=== PATIENT | male | born 2000 | race Caucasian/White ===

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

== ENCOUNTER 2023-02-28 09:53 | Emergency (ER) | payer OTHER, SELFPAY ==
[2023-02-28 10:05] VITALS: BP 104/52; PULSE 79; RESP 18; TEMP 37.4; O2SAT 99; BMI 27.3
--- NOTE | 2023-02-28 10:10 | XR_ITS ---
FINAL REPORT CLINICAL HISTORY: Lower back pain, tree fell on back 1 month ago FINDINGS: LUMBAR SPINE Three views demonstrate no acute fracture. The disc spaces are well preserved. There is no malalignment. IMPRESSION: No acute process. Reviewed, Interpreted and Dictated by Niko Ellison MD Transcribed by Gaby Gomez Authenticated and [facility]
--- NOTE | 2023-02-28 11:02 | EXP.UTC ---
Discharge Plan Disposition Patient Disposition: Home, Self-Care Condition: Good Prescriptions Prescriptions: New methocarbamol 500 mg tablet 500 mg PO TID PRN (Reason: muscle spasm) Qty: 15 0RF Referrals Follow up/Referrals: Eric Mckenzie MD [Primary Care Provider] - See instructions Activity Restrictions/Add. Instructions Additional Instructions/Restrictions: *Ibuprofen farnaz 6 hours with meal as needed for pain/inflammation *Not additional anti-inflammatory like motrin, aleve, advil with the above amount of ibuprofen. You can still take Tylenol every 4 hours as needed if you need something else for pain * moist heat every 20 minutes 3-4 times a day to affected area *Muscle relaxer every 8 hours as needed for muscle spasms but remember, it WILL cause drowsiness You cannot take it and drive, operate machinery or care for small children. *Keep this area active, no movement leads to more stiffness, However take it easy and avoid heavy lifting pushing or pulling *Follow up with you family doctor if no improvement for further treatment Clinical Impressions Clinical Impression: Low back pain Stand Alone Forms Stand Alone Forms: Work/School Release Instructions Patient Instructions: DI for Muscle Spasm, Methocarbamol Discharge ED Provider: Nayana Waggoner [facility] General Stated complaint: Back pain AO@home 02/08 Mode of Arrival: Ambulatory Source of Information: Patient and Parent(s) Limitations: No Limitations Time Seen by Provider: 02/28/23 11:02 Description of Symptoms (Recalled from Triage Doc. by RN): c/o lower left back pain, a few weeks ago and tree branch fell on it, the pain and swelling comes and goes since the injury, states when he rest at night it seems better t/o the day and as the day goes on it get worse. STates he does alot of heavy lifting at work, History of Present Illness Provider Complaint: Patient states that he was cutting a tree branch about a month or so ago when one the branches fell and hit him in the right side of his lower back States that he had a knot and some bruising there after it happened but it got better States that he does alot of heavy lifting and pulling at work and has been having pain in his right lower back on and off since States that when he sits and rest it gets better but when he is up moving during the day he has spasms so today he came in to get it checked Related Data Previous Rx's Medication Instructions Recorded methocarbamol 500 mg tablet 500 mg PO TID PRN muscle spasm #15 02/28/23 tabs Allergies Allergy/AdvReac Type Severity Reaction Status Date / Time NO KNOWN ALLERGIES Allergy Uncoded 10/15/17 15:12 [facility] Disclaimer: The information contained in this section may have been updated after the patient was seen, as this information can be updated by other users. Social History Smoking Status: Unknown if ever smoked alcohol intake: never current occupational status: employed Travel in the last 8 weeks: None ROS Obtained: Yes All systems reviewed & no additional complaints except as documented and Yes Systems reviewed as appropriate & no additional complaints except as documented ENT Ears, Nose, Mouth, and Throat: Reports system reviewed and no additional complaints, except as documented and Reports as per HPI Cardiovascular Cardiovascular: Reports system reviewed and no additional complaints, except as documented and Reports as per HPI Respiratory Respiratory: Reports system reviewed and no additional complaints, except as documented and Reports as per HPI Gastrointestinal Gastrointestingal: Reports system reviewed and no additional complaints, except as documented and as per HPI Genitourinary Male Genitourinary: Reports system reviewed and no additional complaints, except as documented, Reports as per HPI, Denies difficulty urinating and Denies hematuria Musculoskeletal Musculoskeletal: Reports system reviewed and no additional comp
[2023-02-28 11:57] VITALS: BP 104/52; PULSE 79; RESP 18; TEMP 37.4
== END 2023-02-28 11:58 | disposition home or self-care (01) ==
PROVIDERS: Emergency Provider Nurse Practitioner; PCP Internal Medicine Adolescent Medicine
DX: M54.50 Low back pain, unspecified (principal); W20.8XXA Other cause of strike by thrown, projected or falling object, initial encounter
CPT/HCPCS: 72100; 99204; 99212; G0463

== ENCOUNTER 2025-06-20 17:43 | Emergency (ER) | payer OTHER, SELFPAY ==
[2025-06-20] VITALS (7 sets, daily range): BP systolic 112–120; BP diastolic 63–75; PULSE 85–98; RESP 18; TEMP 37.1; O2SAT 98; BMI 29.0
--- OUTSIDE RECORDS SUMMARY | 2025-06-20 18:12 | XMS_ITS | Referral Summary ---
Author Organization [employer] ([place], [place], [place], [place]) Address [address] [place] [address] Care Team Providers Care Roving Marker Name Role Phone Eric Mckenzie MD Primary Care Provider [phone] Allergies No known active allergies Medications cephalexin (KEFLEX) 500 MG capsule Take 1 capsule (500 mg total) by mouth in the morning and 1 capsule (500 mg total) at noon and 1 capsule (500 mg total) in the evening. 21 capsule 03/19/2023 Active Immunizations Name Administration Dates Next Due Tdap 03/19/2023 Social History Tobacco Use Types Packs/Day Years Used Date Smoking Tobacco: Never Smokeless Tobacco: Never Tobacco Cessation:Counseling Given: Not Answered Alcohol Use Standard Drinks/Week Comments Never 0 (1 standard drink = 0.6 oz pur e alcohol) Food Insecurity Answer Date Recorded Food run out past 12 months Not on file 10/29 Food did not last past 12 months Not on file 11/16/2023 Employment Answer Date Recorded Help finding and keeping a job Not on file 0 11/16/2023 Family and Community Support Answer Joe e Recorded Help with Day to Day Activities Not on file 11/16/2023 Feeling Lonely or Isolated Not on file 11/16 Educational Attainment Answer Date Bello rded Speak language other than Uzbek at home Not on file 11/16/2023 Want help with school or training Not on file 11/16/2023 Substance Use Answer Date Recorded Used prescription meds for non-medical reasons N ot on file 11/16/2023 Used illegal drugs past 12 months Not on file 11/16/2023 Sex and Gender Information Value Date Recorded Sex Assigned at Not on file Legal Sex Male 1:05 PM CDT Gender Identity Not on file Sexual Orientation Not on file Last Filed Vital Signs Vital Sign Reading Time Taken Comments Blood Pressure 118/67 03/19/2023 3:00 PM EDT Pulse 78 03/19/2023 3:00 PM EDT Temperature 37.1 C (98.8 F) 03/19/2023 2:15 PM EDT Respiratory Rate 18 03/19/2023 3:00 PM EDT Oxygen Saturation 100% 03/19/2023 3:00 PM EDT Inhaled Oxygen Concentration - - Weight 81.6 kg (180 lb) 03/19/2023 2:15 PM EDT Height 172.7 cm (5' 8 ) 03/19/2023 2:15 PM EDT Body Mass Index 27.37 03/19/2023 2:15 PM EDT Plan of Treatment Not on file Insurance Care Teams Roving Marker Relationship Specialty Start Date End Date Eric Mckenzie MD [address] [facility] [address] [place] [id number] PCP - General Adolescent Medicine 03/19/23
--- OUTSIDE RECORDS SUMMARY | 2025-06-20 18:12 | XMS_ITS | Clinical Summary ---
Author Organization [employer] ([place], [place], [place], [place]) Address [address] [place] [address] Care Team Providers Care Auto Servicer Name Role Phone Eric Mckenzie MD Primary Care Provider [phone] Allergies No known active allergies Medications cephalexin [...] Date Bello rded Speak language other than Hungarian at home Not on file 11/16/2023 Want [...] 03/19/2023 2:15 PM EDT Plan of Treatment Health Maintenance Due Date Last Done Comments Depression Screening (12+) 2013 HIV Screening 2016 Meningococcal B Vaccine (1 of 2 - Standard) 2017 Hepatitis C Screening 2019 Tobacco Cessation Counseling and Screening (12+) 03/19/2024 03/19/2023 COVID-19 VACCINE (1 - 2023- season) 2024 Influenza Vaccine (#1) 2025 DTAP/TDAP/TD VACCINES (8 - Td or Tdap) 03/19/2033 03/19/2023, 03/31/2014, 09/07/2005, Additional history exists Pneumococcal Vaccine: 0-49 Years Aged Out 09/08/2002, 03/27/2002, 01/22/2002, Additional history exists No longer eligible based on patient's age to complete this topic Insurance [facility] Care Teams Auto Servicer Relationship Specialty Start Date End Date Eric Mckenzie MD [address] [place] [address] [place] [id number] PCP - General Adolescent Medicine 03/19/23
--- NOTE | 2025-06-20 18:51 | XR_ITS ---
PROCEDURE INFORMATION: Exam: XR Right Knee Exam date and time: 06/20/2025 7:12 PM Age: 24 years old Clinical indication: Pain; Knee; Right; Additional info: Knee injury TECHNIQUE: Imaging protocol: Radiologic exam of the right knee. Views: 3 views. COMPARISON: No relevant prior studies available. FINDINGS: Bones/joints: No displaced fracture. Apparent small lucent lesion within distal femur, nonspecific. No dislocation. Moderate joint effusion. Soft tissues: Unremarkable. IMPRESSION: No displaced fracture. Joint effusion. Suggest CT to evaluate for occult fracture.
--- NOTE | 2025-06-20 18:53 | ED_ITS ---
Discharge Plan Disposition Patient Disposition: Home, Self-Care Prescriptions Prescriptions: No Action methocarbamol 500 mg tablet 500 mg PO TID PRN (Reason: muscle spasm) Qty: 15 0RF Referrals Follow up/Referrals: Leon Means DO [Staff Physician, Orthopedics] - See instructions Eric Mckenzie MD [Primary Care Provider, Internal Medicine] - See instructions Activity Restrictions/Add. Instructions Additional Instructions/Restrictions: No evidence of any fracture or dislocation but as discussed you have laxity in your knee and a joint effusion suggestive of internal derangement concerning for possible ligamental injury etc. Please follow-up with Dr. Means to arrange an outpatient MRI and further management. You may bear weight as tolerated and you may wear your Shabbir wrap and use crutches as needed for comfort. Clinical Impressions Clinical Impression: Effusion of right knee joint, Injury of knee, right Print Language Print Language: Kiswahili Discharge ED Provider: Molly Dawkins General Adult HPI General Chief complaint: PAIN Stated complaint: A/O 8- 1500 twisted rt leg cutting wood Time Seen by Provider: 06/20/25 18:11 Mode of Arrival: Ambulatory Source of Information: Patient Description of Symptoms (Recalled from ER Triage Doc. by RN): PT REPORTS RIGHT KNEE PAIN. PT WAS KNELT DOWN CUTTING WOOD, TWISTED AND WAS UNABLE TO STAND. History of Present Illness HPI narrative: Patient is a 24-year-old male presenting with right knee pain. Was cutting wood and accidentally a te-moak bed and sustaining a significant injury to the right knee with significant pain and swelling and difficulty with ambulation weightbearing. Related Data Previous Rx's ?Medication ?Instructions ?Recorded methocarbamol 500 mg tablet 500 mg PO TID PRN muscle s pasm #15 02/28/23 tabs Allergies Allergy/AdvReac Type Severity Reaction Status Date / Time NO KNOWN ALLERGIES Allergy Uncoded 10/15/17 15:12 [facility] Disclaimer: The information contained in this section may have been updated after the patient was seen, as this information can be updated by other users. Social History (Updated 02/28/23 @ 11:54 by Nayana Waggoner APRN) Smoking Status: Never smoker alcohol intake: never current occupational status: employed Travel in the last 8 weeks?: None Have you lived/traveled outside US in past 30 days?: No Contact w/someone who lives/traveled outside US past 30 days?: No Exposure to someone with infectious disease in past 14 days?: No Do you have a fever (greater than 100.4 F or 38 C)?: No Have you tested positive for COVID-19?: No Exposed to someone with COVID-19 in past 14 days?: No Do you have a sore throat?: No Do you have a cough?: No Do you have any weakness?: No Do you have any diarrhea?: No Are you experiencing any unusual bleeding?: No Do you have any muscle aches/pain?: No Do you have any abdominal pain?: No Are you experiencing loss of taste or smell?: No ROS Obtained: Yes All systems reviewed & no additional complaints except as documented Physical Exam General General appearance: alert and in no apparent distress Respiratory Respiratory exam: Present normal lung sounds bilaterally Cardiovascular Cardiovascular exam: Present regular rate and normal rhythm Extremities Exam Extremities exam: Present other (Right knee joint effusion there does appear to be significant laxity with anterior drawer test concerning for ACL injury otherwise stable) Neurological Exam Neurological exam: Present alert and oriented X3 Medical Decision Making Medical Records Screening: Per USPSTF and CDC recommendations, given the prevalence of disease in our region, it is our hospital?s policy to screen for HIV and viral Hepatitis for all patients aged 18 and over and those with ongoing risk factors. Vamshi Inquiry Pt receiving controlled substance: No Vital Signs: 06/20/25 18:00 06/20/25 18:01 06/20/25 18:15 Temperature 98.8 F Temperature Source Oral Pulse Rate 98 H Pulse Rate [Radial] 88 Respiratory Rate 18 Blood Pressure 114/75 112/63 Blood Pressure [Right Arm] 114/75 Blood Pressure Mean 89 79 Blood Pressure Mean [Right Arm] 88 Blood Pressure Source [Right Arm] Automatic Cuff Blood Pressure Position [Right Arm] Sitting 02 Sat by Pulse Oximetry 98 Oxygen Delivery Method Room Air 06/20/25 18:30 06/20/25 18:45 06/20/25 19:00 Temperature Temperature Source Pulse Rate 92 H 85 Pulse Rate [Radial] Respiratory Rate Blood Pressure 115/68 120/75 114/71 Blood Pressure [Right Arm] Blood Pressure Mean 84 91 83 Blood Pressure Mean [Right Arm] Blood Pressure Source [Right Arm] Blood Pressure Position [Right Arm] 02 Sat by Pulse Oximetry Oxygen Delivery Method Orders (Tests/Meds): ORDERS Category Date Time Status Knee XR right 3 views [XR knee RT 3V] Stat Exams 06/20/25 18:51 Taken Medical Decision Narrative: 24-year-old male with significant right knee effusion after injury. He does have a concern on his exam for anterior drawer abnormality concerning for ACL injury and internal derangement of the joint itself. Will get a plain film to rule out any bony injury but likely need an outpatient MRI. Reassessment 7:33 PM x-rays performed which I personally interpreted shows no fracture or dislocation management as above supportive Shabbir wrap and crutches given patient advised to use ice ibuprofen Tylenol and follow-up with Dr. Means for an outpatient MRI and surgical discussion. Critical Care Critical Care Time Critical Care Time: No
--- NOTE | 2025-06-20 19:26 | PC.NURSE ---
pt to xray
== END 2025-06-20 19:39 | disposition home or self-care (01) ==
PROVIDERS: Emergency Provider Student in an Organized Health Care Education/Training Program; PCP Internal Medicine Adolescent Medicine
DX: S89.91XA Unspecified injury of right lower leg, initial encounter (principal); M25.461 Effusion, right knee; X50.1XXA Overexertion from prolonged static or awkward postures, initial encounter
CPT/HCPCS: 73562; 99283